=== PATIENT | female | born 1955 | race African-American/Black ===

== ENCOUNTER → 2021-08-23 | Outpatient (CLI) | payer MEDICARE ==
[2021-08-23 09:08] LABS: BASO % 1.3 % (0.0-1.0); EOS % 1.7 % (0.0-3.0); HEMOGLOBIN 11.3 g/dl (12.0-15.5); LYMPH # 1.2 10^3/uL (1.5-5.0); LYMPH % 48.9 % (24.0-44.0); MEAN CORPUSCULAR HEMOGLOBIN 25.2 pg (27.0-33.0); MEAN CORPUSCULAR HGB CONC 31.4 g/dl (32.0-36.5); MEAN CORPUSCULAR VOLUME 80.2 fl (80.0-96.0); MONO # 0.3 10^3/uL (0.0-0.8); MONO % 12.8 % (2.0-8.0); NEUTROPHILS % 35.3 % (36.0-66.0); PLATELET COUNT, AUTOMATED 168 10^3/uL (150-450); RED BLOOD COUNT 4.49 10^6/uL (4.00-5.40); WHITE BLOOD COUNT 2.4 10^3/uL (4.0-10.0)
[2021-08-23 09:30] LABS: NEUTROPHILS # 0.8 10^3/uL (1.5-8.5)
== END ==
LOC: M LAB 08:33
PROVIDERS: ATTEND Nurse Practitioner
DX: Z79.899 Other long term (current) drug therapy (principal)

== ENCOUNTER → 2021-09-10 | Outpatient (CLI) | payer MEDICARE ==
[2021-09-10 09:04] LABS: BASO % 0.4 % (0.0-1.0); EOS % 0.9 % (0.0-3.0); HEMOGLOBIN 10.8 g/dl (12.0-15.5); LYMPH # 1.4 10^3/uL (1.5-5.0); LYMPH % 59.9 % (24.0-44.0); MEAN CORPUSCULAR HEMOGLOBIN 25.6 pg (27.0-33.0); MEAN CORPUSCULAR HGB CONC 31.8 g/dl (32.0-36.5); MEAN CORPUSCULAR VOLUME 80.6 fl (80.0-96.0); MONO # 0.1 10^3/uL (0.0-0.8); NEUTROPHILS % 32.4 % (36.0-66.0); PLATELET COUNT, AUTOMATED 123 10^3/uL (150-450); RED BLOOD COUNT 4.22 10^6/uL (4.00-5.40); WHITE BLOOD COUNT 2.3 10^3/uL (4.0-10.0)
[2021-09-10 09:31] LABS: NEUTROPHILS # 0.8 10^3/uL (1.5-8.5)
== END ==
LOC: M LAB 08:24
PROVIDERS: ATTEND Nurse Practitioner
DX: C55 Malignant neoplasm of uterus, part unspecified (principal); C57.00 Malignant neoplasm of unspecified fallopian tube; Z79.899 Other long term (current) drug therapy

== ENCOUNTER → 2021-10-04 | Outpatient (CLI) | payer MEDICARE ==
[2021-10-04 08:26] LABS: BASO % 0.9 % (0.0-1.0); EOS % 0.5 % (0.0-3.0); HEMATOCRIT 33.4 % (36.0-47.0); HEMOGLOBIN 10.6 g/dl (12.0-15.5); LYMPH # 1.7 10^3/uL (1.5-5.0); LYMPH % 76.9 % (24.0-44.0); MEAN CORPUSCULAR HEMOGLOBIN 26.2 pg (27.0-33.0); MEAN CORPUSCULAR HGB CONC 31.7 g/dl (32.0-36.5); MEAN CORPUSCULAR VOLUME 82.7 fl (80.0-96.0); MONO # 0.3 10^3/uL (0.0-0.8); MONO % 13.4 % (2.0-8.0); NEUTROPHILS % 8.3 % (36.0-66.0); PLATELET COUNT, AUTOMATED 227 10^3/uL (150-450); RED BLOOD COUNT 4.04 10^6/uL (4.00-5.40); WHITE BLOOD COUNT 2.2 10^3/uL (4.0-10.0)
[2021-10-04 09:30] LABS: NEUTROPHILS # 0.2 10^3/uL (1.5-8.5)
== END ==
LOC: M LAB 07:29
PROVIDERS: ATTEND Nurse Practitioner
DX: Z51.81 Encounter for therapeutic drug level monitoring (principal); Z79.899 Other long term (current) drug therapy

== ENCOUNTER → 2021-10-25 | Outpatient (CLI) | payer MEDICARE ==
[2021-10-25 11:14] LABS: BASO % 0.6 % (0.0-1.0); EOS % 1.1 % (0.0-3.0); HEMATOCRIT 28.3 % (36.0-47.0); HEMOGLOBIN 9.2 g/dl (12.0-15.5); LYMPH # 1.4 10^3/uL (1.5-5.0); LYMPH % 75.4 % (24.0-44.0); MEAN CORPUSCULAR HEMOGLOBIN 27.4 pg (27.0-33.0); MEAN CORPUSCULAR HGB CONC 32.5 g/dl (32.0-36.5); MEAN CORPUSCULAR VOLUME 84.2 fl (80.0-96.0); MONO # 0.1 10^3/uL (0.0-0.8); MONO % 6.1 % (2.0-8.0); NEUTROPHILS % 16.2 % (36.0-66.0); RED BLOOD COUNT 3.36 10^6/uL (4.00-5.40); WHITE BLOOD COUNT 1.8 10^3/uL (4.0-10.0)
[2021-10-25 11:29] LABS: NEUTROPHILS # 0.3 10^3/uL (1.5-8.5); PLATELET COUNT, AUTOMATED 72 10^3/uL (150-450)
== END ==
LOC: M LAB 10:09
PROVIDERS: ATTEND Nurse Practitioner
DX: C55 Malignant neoplasm of uterus, part unspecified (principal); C57.00 Malignant neoplasm of unspecified fallopian tube; Z79.899 Other long term (current) drug therapy

== ENCOUNTER → 2021-11-23 | Outpatient (CLI) | payer MEDICARE | LOC: M CARPUL 10:21 | PROVIDERS: ATTEND Surgery | DX: C34.12 Malignant neoplasm of upper lobe, left bronchus or lung (principal); Z92.21 Personal history of antineoplastic chemotherapy; Z79.899 Other long term (current) drug therapy ==

== ENCOUNTER → 2021-12-03 | Outpatient (CLI) | payer MEDICARE ==
[2021-12-03 09:36] LABS: HEMATOCRIT 30.2 % (36.0-47.0); HEMOGLOBIN 9.6 g/dl (12.0-15.5); MEAN CORPUSCULAR HEMOGLOBIN 29.4 pg (27.0-33.0); MEAN CORPUSCULAR HGB CONC 31.8 g/dl (32.0-36.5); MEAN CORPUSCULAR VOLUME 92.4 fl (80.0-96.0); PLATELET COUNT, AUTOMATED 179 10^3/uL (150-450); RED BLOOD COUNT 3.27 10^6/uL (4.00-5.40); WHITE BLOOD COUNT 2.7 10^3/uL (4.0-10.0)
[2021-12-03 10:08] LABS: ATYPICAL LYMPH 5 % (0-5); BASOPHILS 2 % (0-1); EOSINOPHILS 1 % (0-3); LYMPHOCYTES 48 % (16-44); MONOCYTES 7 % (0-5); NEUTROPHILS 37 % (28-66)
[2021-12-03 10:09] LABS: OVALOCYTES 2+; PLATELET ESTIMATE NORMAL (NORMAL)
== END ==
LOC: M LAB 08:30
PROVIDERS: ATTEND Nurse Practitioner
DX: C55 Malignant neoplasm of uterus, part unspecified (principal); C57.00 Malignant neoplasm of unspecified fallopian tube; Z79.899 Other long term (current) drug therapy

== ENCOUNTER → 2021-12-27 | Outpatient (CLI) | payer MEDICARE ==
[2021-12-27 10:06] LABS: EOS % 0.7 % (0.0-3.0); HEMATOCRIT 27.9 % (36.0-47.0); LYMPH # 1.1 10^3/uL (1.5-5.0); LYMPH % 76.6 % (24.0-44.0); MEAN CORPUSCULAR HEMOGLOBIN 30.2 pg (27.0-33.0); MEAN CORPUSCULAR HGB CONC 32.3 g/dl (32.0-36.5); MEAN CORPUSCULAR VOLUME 93.6 fl (80.0-96.0); MONO # 0.1 10^3/uL (0.0-0.8); MONO % 7.3 % (2.0-8.0); NEUTROPHILS % 15.4 % (36.0-66.0); RED BLOOD COUNT 2.98 10^6/uL (4.00-5.40); WHITE BLOOD COUNT 1.4 10^3/uL (4.0-10.0)
[2021-12-27 10:55] LABS: NEUTROPHILS # 0.2 10^3/uL (1.5-8.5); PLATELET COUNT, AUTOMATED 57 10^3/uL (150-450)
== END ==
LOC: M LAB 08:55
PROVIDERS: ATTEND Nurse Practitioner
DX: C55 Malignant neoplasm of uterus, part unspecified (principal); C57.00 Malignant neoplasm of unspecified fallopian tube; Z79.899 Other long term (current) drug therapy